=== PATIENT | male | born 1985 | race Caucasian/White ===

== ENCOUNTER 2018-07-30 08:02 | Emergency (ER) | payer OTHER ==
[~2018-07-30] VITALS: Ht 188 cm; Wt 80.0 kg
[~2018-07-30 08:02] MED LIST: CEPHALEXIN500 MG PO; GENTAMICIN15 ML/BTL OU; LORTAB 5/3255 MG PO; MEDDOSEPAK PO; NAPROSYN500 MG OR; ULTRAM50 MG OR
[2018-07-30 08:30] LABS: HEMATOCRIT 41.6 % (39.0-50.0); IMMATURE GRANULOCYTES 0.4 % (0.0-5.0); MEAN CELL VOLUME 88.7 fL CALC (80.0-100.0); MEAN CORPUSCULAR HGB 29.2 pG CALC (26.0-32.0); MEAN CORPUSCULAR HGB CONC 32.9 g/L CALC (32.0-36.0); NEUT# 6.2 thou/uL (1.82-7.42); RED BLOOD COUNT 4.69 mill/uL (4.70-6.10); RED CELL DISTRI WIDTH 12.3 % (11.5-15.5)
[2018-07-30 08:31] LABS: HEMOGLOBIN 13.7 g/dl (14.0-18.0)
[2018-07-30 08:39] LABS: INFLUENZA A POSITIVE (NONE DETECT); INFLUENZA B NONE DETECTED (NONE DETECT)
[2018-07-30 08:48] LABS: ALKALINE PHOSPHATASE 45 u/l (38-126); ANION GAP 15 (6-22 (CALC)); BILIRUBIN, TOTAL 0.4 mg/dL (0.0-1.4); BUN 13 mg/dL (9-20); BUN/CREATININE RATIO 12 (12-20 (CALC)); CARBON DIOXIDE 26 mmol/l (22-30); CHLORIDE 105 mmol/l (95-108); CREATININE 1.1 mg/dL (0.7-1.3); GFR > 60 ML/MIN (>=60 (CALC)); GFR FOR AFR.AMER. > 60 ML/MIN (>=60 (CALC)); POTASSIUM 4.2 mmol/l (3.5-5.1); SGOT/AST 15 u/l (17-59); SODIUM 141 mmol/l (137-146); TOTAL PROTEIN 6.7 g/dL (6.3-8.2)
[2018-07-30 11:05] LABS: C. DIFFICILE TOXIN A&B NEGATIVE (NEGATIVE)
[2018-07-30] MEDS ORDERED: TAM75CAP PO (11:08)
[2018-07-30] MEDS ORDERED: ZOFRAN4 MG/TAB PO (11:08)
[2018-07-30] MEDS ORDERED: BENTYL10 MG PO (11:08)
[2018-07-30] MEDS ORDERED: TORADOL PO (11:08)
[2018-07-30 11:30] VITALS: BP 103/56
[2018-07-31] MEDS ORDERED: TORADOL PO ×2 (11:41)
== END 2018-07-30 11:33 | disposition home or self-care (01) ==
LOC: ED 08:02
PROVIDERS: Emergency Medicine
DX: J11.1 Influenza due to unidentified influenza virus with other respiratory manifestations (principal); F17.200 Nicotine dependence, unspecified, uncomplicated; R11.0 Nausea; R19.7 Diarrhea, unspecified; R05 Cough; J02.9 Acute pharyngitis, unspecified; R10.9 Unspecified abdominal pain; R50.9 Fever, unspecified

== ENCOUNTER 2019-06-04 19:29 | Emergency (ER) | payer OTHER ==
[~2019-06-04] VITALS: Ht 188 cm; Wt 86.0 kg
[~2019-06-04 19:29] MED LIST changes: +BENTYL10 MG PO; +TAM75CAP PO; +TORADOL PO; +ZOFRAN4 MG/TAB PO
[2019-06-04] MEDS ORDERED: SULFACET SOD10 % OS (19:49)
[2019-06-04 20:10] VITALS: BP 140/94
== END 2019-06-04 20:10 | disposition home or self-care (01) ==
LOC: ED 19:29
DX: S05.02XA Injury of conjunctiva and corneal abrasion without foreign body, left eye, initial encounter (principal); F17.200 Nicotine dependence, unspecified, uncomplicated; W22.8XXA Striking against or struck by other objects, initial encounter; Y93.89 Activity, other specified; Y92.821 Forest as the place of occurrence of the external cause

== ENCOUNTER 2021-09-04 23:07 | Emergency (ER) | payer OTHER ==
[~2021-09-04] VITALS: Ht 188 cm; Wt 90.9 kg
[~2021-09-04 23:07] MED LIST changes: +SULFACET SOD10 % OS
[2021-09-05] MEDS ORDERED: KEFLEX500 MG PO (00:39)
[2021-09-05 01:45] VITALS: BP 115/77
== END 2021-09-05 01:45 | DRG 159 ==
LOC: ED 23:07
PROC: 0HQ1XZZ Repair Face Skin, External Approach (ICD-10-PCS; principal; 2021-09-04)
DX: S01.511A Laceration without foreign body of lip, initial encounter (principal); S00.83XA Contusion of other part of head, initial encounter; S16.1XXA Strain of muscle, fascia and tendon at neck level, initial encounter; F17.200 Nicotine dependence, unspecified, uncomplicated; W18.2XXA Fall in (into) shower or empty bathtub, initial encounter; Y93.E1 Activity, personal bathing and showering; Y92.142 Bathroom in prison as the place of occurrence of the external cause